=== PATIENT | female | born 1990 | race American Indian/Alaskan Native ===

== ENCOUNTER 2019-07-10 17:14 | Emergency (ER) | payer OTHER, BC ==
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
[2019-07-10] MEDS ORDERED: BOOSTRIX IM ONE (21:40)
[2019-07-10 22:28] VITALS: BP 134/89
== END 2019-07-10 22:33 | disposition home or self-care (01) ==
LOC: ED 17:14
DX: S60.412A Abrasion of right middle finger, initial encounter (principal); R07.89 Other chest pain; M25.512 Pain in left shoulder; M79.671 Pain in right foot; M79.641 Pain in right hand; V49.49XA Driver injured in collision with other motor vehicles in traffic accident, initial encounter; Y93.89 Activity, other specified; Y92.410 Unspecified street and highway as the place of occurrence of the external cause; Y99.8 Other external cause status
CPT/HCPCS: 71046; 90471; 90715